=== PATIENT | male | born 1945 | race Caucasian/White ===

== ENCOUNTER → 2017-08-02 | Outpatient (CLI) | payer MEDICARE, OTHER ==
--- NOTE | 2017-08-02 15:23 | REP ---
LEFT THUMB, COMPLETE: 08/02/2017 CLINICAL HISTORY: Trauma, open wound. FINDINGS: Four view show narrowing of the IP joint of the thumb with accessory ossicle or sesamoid bone along its volar surface and dorsal spurs from the proximal and distal phalanx noted. No visible or displaced acute fracture is evident in the phalanges. Minor degenerative changes of the MCP and CMC joints of the thumb are noted. No radiopaque foreign body is evident. IMPRESSION: 1. Degenerative changes of the IP, MCP and CMC joints of the thumb without definite acute fracture, subluxation or destructive lesion. No visible or radiopaque foreign body. Signed by Mauri Gallardo MD 08/02/2017 04:15 P
== END ==
LOC: M WUC 12:42
PROVIDERS: ATTEND Physician Assistant
DX: S61.001A Unspecified open wound of right thumb without damage to nail, initial encounter (principal); X58.XXXA Exposure to other specified factors, initial encounter; Y93.9 Activity, unspecified; Y92.9 Unspecified place or not applicable; Y99.8 Other external cause status